=== PATIENT | male | born 1955 | race Caucasian/White ===

== ENCOUNTER 2019-04-29 10:55 | Inpatient (IN) | payer BC ==
[~2019-04-29] VITALS: Ht 185.4 cm; Wt 73.5 kg
[2019-04-29] MEDS ORDERED: HYDR12.54 PO (11:07)
[2019-04-29] MEDS ORDERED: OMEP20CA12 PO (11:07)
[2019-04-29] MEDS ORDERED: LABE100T5 PO (11:07)
[2019-04-29] MEDS ORDERED: PRAV40TA4 PO (11:07)
[2019-04-29] MEDS ORDERED: LABE100T7 PO (11:07)
[2019-04-29] MEDS ORDERED: POTA20TA82 PO (11:07)
[2019-04-29] MEDS ORDERED: IBUPROFEN 800 MG TABLET PO ONE (11:30)
[2019-04-29 12:43] LABS: BASOPHILS % (AUTO) 1.3 % (0.0-2.0); EOSINOPHILS % (AUTO) 3.2 % (1.0-6.0); HEMATOCRIT 45.6 % (41-53); HEMOGLOBIN 15.4 g/dL (13.5-17.5); LYMPHOCYTES # (AUTO) 3.7 K/uL (1.0-4.8); LYMPHOCYTES % (AUTO) 30.8 % (22.0-44.0); MEAN CORPUSCULAR HEMOGLOBIN 37.1 pg (26.0-34.0); MEAN CORPUSCULAR HGB CONC 33.9 G/dL (31.0-37.0); MEAN CORPUSCULAR VOLUME 110 fL (80-100); MONOCYTES # (AUTO) 1.3 K/uL (0.1-1.0); MONOCYTES % (AUTO) 10.9 % (2.0-9.0); NEUTROPHILS # (AUTO) 6.5 K/uL (1.8-7.7); NEUTROPHILS % (AUTO) 53.8 % (40.0-70.0); PLATELET COUNT (AUTO) 247 K/uL (150-450); RED BLOOD CELL COUNT(AUTO) 4.16 MIL/uL (4.50-5.90); RED CELL DISTRIBUTION WIDTH 16.2 % (11.5-14.5)
[2019-04-29 12:46] LABS: ALANINE AMINOTRANSFERASE 10 U/L (12-78); ALBUMIN 2.7 g/dL (3.4-5.0); ALKALINE PHOSPHATASE 79 U/L (46-116); ANION GAP 8 mmol/L (8-16); ASPARTATE AMINOTRANSFERASE 19 U/L (15-37); BILIRUBIN,TOTAL 1.8 mg/dL (0.1-1.0); CALCIUM, TOTAL 8.1 mg/dL (8.8-10.5); CARBON DIOXIDE 29 mmol/L (22-29); CHLORIDE 99 mmol/L (98-107); CREATINE KINASE, TOTAL ONLY 30 U/L (39-308); CREATININE 1.14 mg/dL (0.60-1.30); GLOMERULAR FILTR. RATE CALC > 60 mL/min (>60); GLUCOSE,RANDOM 120 mg/dL (70-110); SODIUM SERUM 136 mmol/L (136-145); TOTAL PROTEIN, SERUM 5.9 g/dL (6.4-8.2); UREA NITROGEN, BLOOD 5 mg/dL (7-18)
[2019-04-29 12:49] LABS: POTASSIUM 2.4 mmol/L (3.5-5.1)
[2019-04-29] MEDS ORDERED: POTASSIUM CHLORIDE 20 MEQ ER TABLET PO ONE (13:00)
[2019-04-29 13:22] LABS: B-TYPE NATRIURETIC PEPTIDE 27 pg/mL (0-100)
[2019-04-29 13:26] LABS: D-DIMER 2.23 mg/L FEU (0.00-0.50); INR 1.2 (0.9-1.1); PROTHROMBIN TIME 11.7 SEC (9.4-11.6)
[2019-04-29] MEDS ORDERED: SODIUM CHLORIDE 0.9% 100 ML ONE (13:34)
[2019-04-29] MEDS ORDERED: IOVERSOL 350 MG/ML 100 ML VIAL ONE (13:34)
[2019-04-29 14:07] LABS: ANION GAP 7 mmol/L (8-16); CALCIUM, TOTAL 8.7 mg/dL (8.8-10.5); CARBON DIOXIDE 31 mmol/L (22-29); CHLORIDE 97 mmol/L (98-107); CREATININE 1.18 mg/dL (0.60-1.30); GLOMERULAR FILTR. RATE CALC > 60 mL/min (>60); GLUCOSE,RANDOM 117 mg/dL (70-110); SODIUM SERUM 135 mmol/L (136-145); UREA NITROGEN, BLOOD 6 mg/dL (7-18)
[2019-04-29 14:11] LABS: POTASSIUM 2.5 mmol/L (3.5-5.1)
[2019-04-29] MEDS ORDERED: ENOXAPARIN SODIUM 60 MG/0.6 ML PF SYRINGE SQ ONE (15:00)
[2019-04-29] MEDS ORDERED: ENOXAPARIN SODIUM 80 MG/0.8 ML PF SYRINGE SQ ONE (15:00)
[2019-04-29] MEDS ORDERED: ONDANSETRON HCL 4 MG/2 ML VIAL IVP PRN (16:45)
[2019-04-29] MEDS ORDERED: ACETAMINOPHEN 325 MG TABLET PO PRN (16:45)
[2019-04-29] MEDS ORDERED: 0.9% SODIUM CHLORIDE 10 ML SYRINGE IVP PRN (16:45)
[2019-04-29 21:10] VITALS: BP 114/70
[2019-04-29 22:53] LABS: APPEARANCE,URINE CLEAR (CLEAR); BILIRUBIN,URINE NEGATIVE (NEGATIVE); GLUCOSE, URINE (UA) NEGATIVE (NEGATIVE); KETONES,URINE NEGATIVE (NEGATIVE); LEUKOCYTE ESTERASE ,URINE NEGATIVE (NEGATIVE); NITRATE,URINE NEGATIVE (NEGATIVE); OCCULT BLOOD,URINE NEGATIVE (NEGATIVE); PH,URINE 6.5 (5.0-8.0); PROTEIN,URINE NEGATIVE (NEGATIVE)
[2019-04-29] MEDS ORDERED: SODIUM CHLORIDE 0.9% 1,000 ML ONE (23:07)
[2019-04-29] MEDS: APIXABAN 5 MG TABLET PO SCH (23:46)
[2019-04-29] MEDS: POTASSIUM CHL 10 MEQ/WATER 50 ML IV PRN (23:46)
[2019-04-30] VITALS (7 sets, daily range): BP systolic 106–141; BP diastolic 64–79
[2019-04-30] MEDS ORDERED: SODIUM CHLORIDE 0.9% 250 ML IV ONE (00:48)
[2019-04-30] MEDS ORDERED: INFLUENZA VIRUS VACCINE QVS 2019-20 (3YR+)/PF 60 MCG/0.5 ML SYRINGE IM ONE (01:45)
[2019-04-30] MEDS ORDERED: PNEUMOCOCCAL VACCINE POLYVALENT 0.5 ML VIAL [PPSV23] IM ONE (01:45)
[2019-04-30] MEDS: POTASSIUM CHL 10 MEQ/WATER 50 ML IV PRN ×3 (02:14→06:49)
[2019-04-30] MEDS ORDERED: ONDANSETRON HCL 4 MG/2 ML VIAL IVP PRN (04:30)
[2019-04-30] MEDS ORDERED: 0.9% SODIUM CHLORIDE 10 ML SYRINGE IVP PRN (04:30)
[2019-04-30] MEDS ORDERED: ACETAMINOPHEN 325 MG TABLET PO PRN (04:30)
[2019-04-30] MEDS ORDERED: MAGNESIUM HYDROXIDE SUSPENSION 30 ML UDCUP PO PRN (04:30)
[2019-04-30] MEDS ORDERED: OxyCODONE HCL/ACETAMINOPHEN 5-325 MG TABLET PO PRN ×2 (04:30)
[2019-04-30 08:41] LABS: BASOPHILS % (AUTO) 1.3 % (0.0-2.0); EOSINOPHILS % (AUTO) 4.3 % (1.0-6.0); HEMATOCRIT 48.7 % (41-53); HEMOGLOBIN 16.2 g/dL (13.5-17.5); LYMPHOCYTES % (AUTO) 27.5 % (22.0-44.0); MEAN CORPUSCULAR HEMOGLOBIN 36.8 pg (26.0-34.0); MEAN CORPUSCULAR HGB CONC 33.2 G/dL (31.0-37.0); MEAN CORPUSCULAR VOLUME 111 fL (80-100); MONOCYTES % (AUTO) 9.4 % (2.0-9.0); NEUTROPHILS # (AUTO) 6.3 K/uL (1.8-7.7); NEUTROPHILS % (AUTO) 57.5 % (40.0-70.0); PLATELET COUNT (AUTO) 292 K/uL (150-450); RED CELL DISTRIBUTION WIDTH 16.1 % (11.5-14.5)
[2019-04-30] MEDS: DOCUSATE SODIUM 100 MG CAPSULE PO SCH ×2 (09:00→20:46)
[2019-04-30] MEDS: POTASSIUM CHLORIDE 20 MEQ ER TABLET PO PRN ×2 (09:15→20:03)
[2019-04-30] MEDS: APIXABAN 5 MG TABLET PO SCH ×2 (09:16→20:03)
[2019-04-30] MEDS: FAMOTIDINE 10 MG/ML 2 ML VIAL IVP SCH (09:16)
[2019-05-01 05:33] VITALS: BP 120/67
[2019-05-01 07:22] LABS: CALCIUM, TOTAL 8.9 mg/dL (8.8-10.5); CREATININE 1.26 mg/dL (0.60-1.30); POTASSIUM 3.1 mmol/L (3.5-5.1)
[2019-05-01 07:34] LABS: EOSINOPHILS % (AUTO) 4.9 % (1.0-6.0); HEMATOCRIT 47.4 % (41-53); LYMPHOCYTES % (AUTO) 33.9 % (22.0-44.0); MEAN CORPUSCULAR HGB CONC 33.9 G/dL (31.0-37.0); MEAN CORPUSCULAR VOLUME 112 fL (80-100); MONOCYTES # (AUTO) 1.2 K/uL (0.1-1.0); MONOCYTES % (AUTO) 10.3 % (2.0-9.0); NEUTROPHILS # (AUTO) 5.9 K/uL (1.8-7.7); NEUTROPHILS % (AUTO) 49.9 % (40.0-70.0); PLATELET COUNT (AUTO) 328 K/uL (150-450); RED BLOOD CELL COUNT(AUTO) 4.22 MIL/uL (4.50-5.90); RED CELL DISTRIBUTION WIDTH 16.1 % (11.5-14.5)
[2019-05-01 08:02] VITALS: BP 127/70
[2019-05-01] MEDS: DOCUSATE SODIUM 100 MG CAPSULE PO SCH (08:45)
[2019-05-01] MEDS: APIXABAN 5 MG TABLET PO SCH (08:45)
[2019-05-01] MEDS: FAMOTIDINE 10 MG/ML 2 ML VIAL IVP SCH (08:45)
[2019-05-01] MEDS: POTASSIUM CHLORIDE 20 MEQ ER TABLET PO PRN (08:45)
[2019-05-01] MEDS ORDERED: APIX5TAB PO (10:21)
[2019-05-01 11:14] VITALS: BP 120/76
[2019-05-06] MEDS ORDERED: APIXABAN 5 MG TABLET PO SCH (21:00)
== END 2019-05-01 11:00 | disposition home or self-care (01) | DRG 175 ==
LOC: EMS 10:58 → 5N 17:33
PROVIDERS: ADMIT Internal Medicine; ATTEND Internal Medicine
DX: I26.99 Other pulmonary embolism without acute cor pulmonale (principal); E43 Unspecified severe protein-calorie malnutrition; J90 Pleural effusion, not elsewhere classified; I82.441 Acute embolism and thrombosis of right tibial vein; I82.412 Acute embolism and thrombosis of left femoral vein; E87.6 Hypokalemia; R73.9 Hyperglycemia, unspecified; J43.9 Emphysema, unspecified; R91.1 Solitary pulmonary nodule; I10 Essential (primary) hypertension; E78.00 Pure hypercholesterolemia, unspecified; I49.9 Cardiac arrhythmia, unspecified; F17.210 Nicotine dependence, cigarettes, uncomplicated; I26.93 Single subsegmental thrombotic pulmonary embolism without acute cor pulmonale; Z90.49 Acquired absence of other specified parts of digestive tract; Z68.21 Body mass index [BMI] 21.0-21.9, adult; Z83.3 Family history of diabetes mellitus; Z82.49 Family history of ischemic heart disease and other diseases of the circulatory system
CPT/HCPCS: 71275; 84132; 85379; 90686; 90732; 93005; 93306; 93970; J1650; J3480; J3490; J7030; J7050

== ENCOUNTER 2019-06-26 09:25 | Emergency (ER) | payer BC ==
[~2019-06-26] VITALS: Ht 185.4 cm; Wt 75.0 kg
[~2019-06-26 09:25] MED LIST: APIX5TAB PO; HYDR12.54 PO; LABE100T5 PO; LABE100T7 PO; OMEP20CA12 PO; POTA20TA82 PO; PRAV40TA4 PO
[2019-06-26 10:15] LABS: BASOPHILS % (AUTO) 0.3 % (0.0-2.0); EOSINOPHILS % (AUTO) 5.5 % (1.0-6.0); HEMATOCRIT 39.6 % (41-53); LYMPHOCYTES # (AUTO) 5.4 K/uL (1.0-4.8); LYMPHOCYTES % (AUTO) 58.7 % (22.0-44.0); MEAN CORPUSCULAR HEMOGLOBIN 36.1 pg (26.0-34.0); MEAN CORPUSCULAR HGB CONC 35.4 G/dL (31.0-37.0); MEAN CORPUSCULAR VOLUME 102 fL (80-100); MONOCYTES # (AUTO) 0.7 K/uL (0.1-1.0); MONOCYTES % (AUTO) 7.4 % (2.0-9.0); NEUTROPHILS # (AUTO) 2.6 K/uL (1.8-7.7); NEUTROPHILS % (AUTO) 28.1 % (40.0-70.0); PLATELET COUNT (AUTO) 206 K/uL (150-450); RED BLOOD CELL COUNT(AUTO) 3.88 MIL/uL (4.50-5.90)
[2019-06-26 10:28] LABS: INR 1.1 (0.9-1.1); PROTHROMBIN TIME 10.8 SEC (9.4-11.6)
[2019-06-26 10:50] LABS: ALBUMIN 3.9 g/dL (3.4-5.0); BILIRUBIN,TOTAL 1.2 mg/dL (0.1-1.0); CALCIUM, TOTAL 8.4 mg/dL (8.8-10.5); CREATININE 1.27 mg/dL (0.60-1.30); TOTAL PROTEIN, SERUM 7.4 g/dL (6.4-8.2)
[2019-06-26 11:12] VITALS: BP 146/91
[2019-06-26] MEDS ORDERED: POTASSIUM CHLORIDE 20 MEQ ER TABLET PO ONE (11:15)
== END 2019-06-26 11:27 | disposition home or self-care (01) ==
LOC: EMS 09:27
DX: R07.9 Chest pain, unspecified (principal); R05 Cough; J44.9 Chronic obstructive pulmonary disease, unspecified; E78.00 Pure hypercholesterolemia, unspecified; F17.210 Nicotine dependence, cigarettes, uncomplicated; Z90.89 Acquired absence of other organs
CPT/HCPCS: 93005